=== PATIENT | female | born 1940 | race Caucasian/White ===

== ENCOUNTER → 2017-03-29 | Outpatient (CLI) | payer MEDICARE ==
[2017-03-29 09:15] LABS: HEMOGLOBIN 15.9 g/dL (12.2-16.2); LYMPH # 1.7 K/mm3 (0.7-4.5); LYMPH % 33.5 % (10-50.0)
[2017-03-29 10:31] LABS: BUN 17 mg/dL (7-18); GFR (ESTIMATED) 82 ML/MIN (59-)
[2017-03-29 11:09] LABS: URINE BILIRUBIN - DIPSTICK NEGATIVE (NEG); URINE BLOOD 1+ (NEG)
[2017-03-29 11:34] LABS: URINE SQUAMOUS CELLS OCC #/hpf (0-5)
[2017-03-31 16:40] LABS: Cobalt, Plasma 1.1 ug/L (0.0-0.9)
[2017-03-31 18:36] LABS: Chromium, Plasma 13.4 ug/L (0.1-2.1)
== END ==
LOC: LAB 08:45
PROVIDERS: Internal Medicine
DX: E78.5 Hyperlipidemia, unspecified (principal); R31.9 Hematuria, unspecified; D72.819 Decreased white blood cell count, unspecified; Z96.649 Presence of unspecified artificial hip joint

== ENCOUNTER → 2017-04-08 | Outpatient (CLI) | payer MEDICARE | LOC: LAB 09:46 | DX: Z96.642 Presence of left artificial hip joint (principal); R79.0 Abnormal level of blood mineral ==